=== PATIENT | female | born 1975 | race Hispanic/Latino ===

== ENCOUNTER 2025-06-16 12:17 | Emergency (ER) | payer SELFPAY ==
[~2025-06-16] VITALS: Ht 152.4 cm; Wt 68.0 kg
[2025-06-16 13:45] VITALS: TEMP 97.8
[2025-06-16 14:28] LABS: BASOPHILS % 0.6 % (0.0-1.0); EOSINOPHILS % 0.9 % (0.0-6.0); LYMPHOCYTES % 29.5 % (18.0-39.1); MONOCYTES % 5.7 % (4.4-11.3); NEUTROPHILS % 63.1 % (38.7-80.0); RED CELL DISTRIBUTION WIDTH 12.7 % (11.7-14.4)
[2025-06-16 15:05] LABS: EST GLOMERULAR FILTRATION RATE 112.0 ML/MIN (>=60)
[2025-06-16] MEDS ORDERED: IOPAMIDOL 370 MG/ML 100 ML INFUS..BTL INJ ONE (16:24)
[2025-06-16] MEDS: SODIUM CHLORIDE 0.9% 1000ML 1,000 ML IV STA (16:35)
[2025-06-16 18:27] VITALS: RESP 16
[2025-06-16] MEDS: HYDRALAZINE HCL 20 MG/ML VIAL IV STA (18:27)
[2025-06-16 19:16] VITALS: PULSE 96
[2025-06-16 19:25] VITALS: BP 147/95; O2SAT 99
== END 2025-06-16 19:24 | disposition home or self-care (01) ==
LOC: ER 15:37
DX: I10 Essential (primary) hypertension (principal); R42 Dizziness and giddiness; H53.8 Other visual disturbances; R20.0 Anesthesia of skin; R94.31 Abnormal electrocardiogram [ECG] [EKG]
CPT/HCPCS: 36415; 70450; 70487; 70491; 71045; 80053; 83735; 84484; 84702; 85025; 93005; 99284; J0360; J7030; Q9967